=== PATIENT | male | born 1950 | race Caucasian/White ===

== ENCOUNTER 2023-09-09 07:09 | Day surgery (SDC) | payer OTHER ==
[~2023-09-09] VITALS: Ht 165.1 cm; Wt 78.0 kg
[~2023-09-09 07:09] MED LIST: AMLO5 PO; B-1100 M1 PO; CALC.25 PO; DIVA125EC PO; FOLI1 PO; FURO40 PO; POTA10T PO; QUET300 PO; SPIR25 PO; ZOCOR20 MG PO
[2023-09-09 07:55] VITALS: BP 105/77
[2023-09-09 09:54] VITALS: BP 146/91
[2023-09-09 10:00] VITALS: BP 145/88
--- NOTE | 2023-09-09 10:01 | NUR ---
PT BACK TO RECOVER FROM LAB. PT RESTING IN BED. SITE SOFT AND NON-TENDER. NO BLEEDING NOTED.
--- NOTE | 2023-09-09 10:09 | NUR ---
DR ROY AT BEDSIDE DISCUSSING PROCEDURE AND PLAN OF CARE W/ PT.
[2023-09-09 10:15] VITALS: BP 155/95
[2023-09-09 10:37] VITALS: BP 150/79
[2023-09-09 10:46] VITALS: BP 151/95
--- NOTE | 2023-09-09 11:29 | NUR ---
PT AMBULATED TO RESTROOM W/O ASSISTANCE. PT GIVEN PLAVIX 225MG PO. PLAVIX SCRIPT CALLED INTO [facility]. PT AWARE. PT GIVEN LUNCH TRAY. PT CALLED FRIEND TO PICK HIM UP. PT GIVEN DC INSTRUCTIONS AND VERBALIZED UNDERSTANDING. IV OUT. PT CHANGED INTO CLOTHES. SLING APPLIED. SITES SOFT AND NON-TENDER PER PT. THRILL FELT. NO BLEEDING NOTED. SITE REVIEWED BY GOLDIE GUALLPA PRIOR TO DC. PT TAKEN TO Y VIA WC. [facility] FROM FRIEND.
== END 2023-09-09 14:49 | disposition home or self-care (01) ==
LOC: MHTC 07:09
DX: Z49.01 Encounter for fitting and adjustment of extracorporeal dialysis catheter (principal); I12.0 Hypertensive chronic kidney disease with stage 5 chronic kidney disease or end stage renal disease; N18.6 End stage renal disease; D63.1 Anemia in chronic kidney disease; N25.81 Secondary hyperparathyroidism of renal origin; E78.5 Hyperlipidemia, unspecified; F17.210 Nicotine dependence, cigarettes, uncomplicated; Z79.899 Other long term (current) drug therapy
CPT/HCPCS: 76937; 99152; 99153; A9270; C1725; C1769; C1889; C1894; J1644; J2250; J3010; J7030; J7050

== ENCOUNTER 2023-12-23 07:04 | Day surgery (SDC) | payer OTHER ==
[~2023-12-23] VITALS: Ht 165.1 cm; Wt 80.7 kg
[2023-12-23 07:53] VITALS: BP 136/78
[2023-12-23] MEDS ORDERED: Heparin Sodium 1000 Units/ML 10ML MDV ONE (08:35)
[2023-12-23] MEDS ORDERED: Verapamil HCL 2.5 MG/ML 2ML Injection ONE (08:35)
[2023-12-23] MEDS ORDERED: NS 1,000 ML IV ONE (08:35)
[2023-12-23] MEDS ORDERED: Nitroglycerin 2 MG/20 ML BTL ONE (08:36)
[2023-12-23] MEDS ORDERED: Midazolam HCl 1MG / ML 2ML Vial ONE ×2 (08:43→09:23)
[2023-12-23] MEDS ORDERED: FentaNYL Citrate 50 MCG/ML 2 ML Injection ONE ×2 (08:44→09:24)
[2023-12-23] MEDS ORDERED: NS 500 ML IV ONE (08:44)
--- NOTE | 2023-12-23 09:57 | NUR ---
patient returned from procedure, alert, responds appropriately, left radial artery TR band in place, soft, nontender, no hematoma, no bleeding
--- NOTE | 2023-12-23 10:20 | NUR ---
patient up to rest room. tolerated well
[2023-12-23 10:30] VITALS: BP 132/90
[2023-12-23 10:45] VITALS: BP 142/110
[2023-12-23 11:00] VITALS: BP 120/96
--- NOTE | 2023-12-23 11:04 | NUR ---
removal of air from TR band started
[2023-12-23 11:15] VITALS: BP 126/92
--- NOTE | 2023-12-23 11:35 | NUR ---
Air completely removed from TR band. site soft and nontender, no hematoma, no bleeding
--- NOTE | 2023-12-23 12:20 | NUR ---
patient up to restroom and dressed. wrist board in place with cloth dot, iv site dced with actheter intact by Oscar ARORA
--- NOTE | 2023-12-23 12:41 | NUR ---
patient verbalized understanding of discharge instructions and precautions. left radial site remains soft and nontender, no hematoma, no bleeding. patient transferred via wheel chair to waiting car. friend driving
== END 2023-12-23 12:40 | disposition home or self-care (01) ==
LOC: MHTC 07:04
PROC: 037C3ZZ Dilation of Left Radial Artery, Percutaneous Approach (ICD-10-PCS; principal; 2023-12-23)
DX: T82.898A Other specified complication of vascular prosthetic devices, implants and grafts, initial encounter (principal); I12.0 Hypertensive chronic kidney disease with stage 5 chronic kidney disease or end stage renal disease; N18.6 End stage renal disease; E78.00 Pure hypercholesterolemia, unspecified; F17.210 Nicotine dependence, cigarettes, uncomplicated; Z99.2 Dependence on renal dialysis; Z79.899 Other long term (current) drug therapy; Y84.1 Kidney dialysis as the cause of abnormal reaction of the patient, or of later complication, without mention of misadventure at the time of the procedure
CPT/HCPCS: 76937; 99152; 99153; C1725; C1769; C1887; C1894; J1644; J2250; J3010; J7030; J7040; Q9967